=== PATIENT | male | born 1940 | race Caucasian/White ===

== ENCOUNTER 2023-06-21 06:16 | Inpatient (IN) | payer MEDICARE, SELFPAY ==
[2023-06-12 08:08] VITALS: BMI 23.2
[2023-06-12 09:01] LABS: Hematocrit 50.3 % (39.0-52.0); Hemoglobin 14.7 g/dL (13.0-18.0); Mean Corp Hgb Conc. 29.2 g/dL (33.0-37.0); Mean Corpuscular Hgb 23.3 pg (27.0-31.0); Mean Corpuscular Volume 79.8 fL (80.0-94.0); Mean Platelet Volume 9.7 fL (7.4-10.4); Platelet Count 370 10^3/uL (130-400); Red Cell Dist. Width 15.9 % (11.5-14.5); White Blood Cell Count 8.9 10^3/uL (4.8-10.8)
[2023-06-12 09:41] LABS: Blood Urea Nitrogen 25 mg/dl (9-20); Calcium 9.6 mg/dl (8.4-10.2); Carbon Dioxide 27 mmol/L (22-30); Chloride 103 mmol/L (98-107); Estimated Creatinine Clearance 55 ml/min; Glucose 84 mg/dl (70-99); Potassium 4.3 mmol/L (3.5-5.1); Sodium 137 mmol/L (135-145); eGFR > 60.00
[2023-06-21] VITALS (12 sets, daily range): BP systolic 119–134; BP diastolic 53–76; BMI 23.2
[2023-06-21] MEDS: TYLENOL 1000 MG PO (11:12)
[2023-06-21] MEDS: NORMOSOL-R 1000 IV ×2 (11:13→15:39)
--- NOTE | 2023-06-21 14:06 | W.IMMPOSTOP ---
Addendum entered and electronically signed by Bruno Alfredo MD 06/21/23 14:18:
[facility]#[id number]
Original Note:
Surgical Immed Post Op Note
-
Primary Surgeon: Juni
Assisting Surgeon: None
Pre-op Diagnosis: Ileostomy
Post-op Diagnosis: Ileostomy
Procedure Performed: Ileostomy reversal
Anesthesia Type: General
Specimen / Cultures: None
Estimated Blood Loss: 7 cc
Complications: None
Operative Findings:
1. [id number] stapled anastomosis using CANDICE 60 mm blue load stapler x2
2. Crotch stitch and staple line oversewn, mesenteric defect closed
3. Viable, hemostatic, and patent anastomosis
[2023-06-21] MEDS: DILAUDID 0.25 MG IV ×2 (14:59→15:31)
[2023-06-21] MEDS: TYLENOL 650 MG PO ×2 (16:21→20:21)
--- NOTE | 2023-06-21 16:47 | PTCARENOTE ---
Patient admitted from pacu post ileostomy reversal.The patient is alert and oriented.He rates his pain at a 2 out of 10.The dressing is dry and intact with just Betadine showing.Vital signs are stable.The patient is in his bed with the call velez in
reach.
[2023-06-22] VITALS (8 sets, daily range): BP systolic 125–140; BP diastolic 61–69
[2023-06-22] MEDS: NORMOSOL-R 1000 IV ×3 (00:36→17:46)
[2023-06-22] MEDS: TYLENOL PO (00:39)
[2023-06-22] MEDS: ZOFRAN 4 MG IV ×2 (03:56→15:23)
[2023-06-22] MEDS: TYLENOL 650 MG PO ×6 (04:55→23:48)
[2023-06-22] MEDS: PROTONIX IV 40 MG IV (08:35)
[2023-06-22] MEDS: NSS (PRESERVATIVE FREE) 10 ML IV (08:35)
[2023-06-22 09:13] LABS: % Basophils 0.1 % (0-2); % Immature Granulocytes 0.9 % (0-0.5); % Lymphocytes 3.6 % (20.5-51.1); % Monocytes 2.9 % (1.7-9.3); % Neutrophils 92.5 % (42.2-75.2); Absolute Immature Granulocytes 0.2 10^3/uL (0-0.05); Absolute Lymphocytes 0.8 10^3/uL (1.2-3.4); Absolute Monocytes 0.6 10^3/uL (0.1-0.6); Absolute Neutrophils 19.2 10^3/uL (1.4-6.5); Hematocrit 40.2 % (39.0-52.0); Hemoglobin 12.1 g/dL (13.0-18.0); Mean Corp Hgb Conc. 30.1 g/dL (33.0-37.0); Mean Corpuscular Hgb 23.3 pg (27.0-31.0); Mean Corpuscular Volume 77.5 fL (80.0-94.0); Mean Platelet Volume 10.1 fL (7.4-10.4); Nucleated Red Blood Cells % 0 % (-); Platelet Count 397 10^3/uL (130-400); Red Blood Cell Count 5.19 10^6/uL (4.70-6.10); Red Cell Dist. Width 14.8 % (11.5-14.5); White Blood Cell Count 20.7 10^3/uL (4.8-10.8)
[2023-06-22 09:35] LABS: Blood Urea Nitrogen 25 mg/dl (9-20); Calcium 8.7 mg/dl (8.4-10.2); Carbon Dioxide 24 mmol/L (22-30); Chloride 98 mmol/L (98-107); Estimated Creatinine Clearance 62 ml/min; Glucose 157 mg/dl (70-99); Potassium 4.8 mmol/L (3.5-5.1); Sodium 134 mmol/L (135-145); eGFR > 60.00
--- NOTE | 2023-06-22 09:49 | W.PN.GS2 ---
Addendum entered and electronically signed by Edgard George MD 06/22/23 10:01:
pt seen and examined with MANAGED SERVICES CONSULTANT, agree with documented progress note
c/o gas cramps, some incisional pain
no nausea but urge to belch
AFVSS
ABD: softly distended and tympanitic; mild/appropriate TTP at incision site
incision with gauze dressing - betadine stained
A/P: POD#1 s/p reversal of loop ileostomy
NPO, sips/chips for comfort
IVF
OOBTC/ambulate
Original Note:
Today's Communication / Plan
-
Sips of clears
OOB/Ambulate
Assessment / Plan
-
82 yo male with h/o PCV who is POD #1 ileostomy reversal
AFVSS
Reactive leukocytosis post op, other labs stable
Await return of bowel function, high risk for ileus
Voiding
--NPO with sips of clears
--Analgesics with scheduled Tylenol and prn narcotics
--Lovenox for VTE ppx
--Follow labs
--OOB/Ambulate
--IS while awake
Subjective Data
-
Date of Service: June 22, 2023
Patient seen and examined at bedside with Dr. George. Gas pains overnight, did not get much sleep. Voiding without difficulty. Denies n/v.
Objective Data
-
Intake and Output
06/21/23 06/22/23 06/23/23
06:59 06:59 06:59
Intake Total 1991
Output Total 250 / 250
Balance 1742 / 1742
Intake:
Oral fluids 240 / 240
IV fluids (Total) 1750 / 1750
normosol 250 / 250
IV piggybacks 2 / 2
Output:
Urine, Voided 250 / 250
Other:
Number of approximated MODERATE 1
amounts of urine
Vital Signs
Temp Pulse Resp BP Pulse Ox
98.1 F 74 20 126/61 97
06/22/23 07:30 06/22/23 07:30 06/22/23 07:30 06/22/23 07:30 06/22/23 07:30
Lab Results
06/22/23 08:36
06/22/23 08:36
Calcium 8.7 mg/dl (8.4-10.2) 06/22/23 08:36
Physical Exam
-
Gen: NAD
Abd: soft, mild tenderness, MANAGED SERVICES CONSULTANT, distention noted
Incision with intact dressing with shadowing
--- NOTE | 2023-06-22 14:31 | CM ---
CM following re: discharge planning.
Reviewed pt's chart. Met with patient in room.
Pt is an 82 year old, admitted with primary dx of POD#1 s/p reversal of loop ileostomy
Pt reports he lives with his partner Uvaldo in a 2-story home. There are no steps to enter and a flight of stairs to the bedroom/full bathroom. Patient has a half bathroom on the first floor and he may end up making a first floor set up. Pt reports
he had [facility] in the past and pt stated he will not need any VN services at discharge.
PCP: Eulalio Carrillo
Pharmacy: [facility].
D/C plan: home with partner support. Partner to transport at discharge.,
CM will follow with discharge plan updates as hospitalization progresses
--- NOTE | 2023-06-22 16:47 | PTCARENOTE ---
Report given to Rebecca on [facility], patient transferred in bed to room 2140 due to contact precautions
--- NOTE | 2023-06-22 23:45 | PTCARENOTE ---
Patient had a large loose dark brown stool.
--- NOTE | 2023-06-23 00:11 | PTCARENOTE ---
Patient had a large loose dark brown/bloody stool.
[2023-06-23 03:14] VITALS: BP 102/51
[2023-06-23] MEDS: NORMOSOL-R 1000 IV ×3 (03:22→23:57)
[2023-06-23] MEDS: TYLENOL PO ×2 (04:00→23:58)
[2023-06-23 07:09] LABS: Hematocrit 31.9 % (39.0-52.0); Hemoglobin 9.7 g/dL (13.0-18.0); Mean Corp Hgb Conc. 30.4 g/dL (33.0-37.0); Mean Corpuscular Hgb 22.9 pg (27.0-31.0); Mean Corpuscular Volume 75.4 fL (80.0-94.0); Mean Platelet Volume 9.9 fL (7.4-10.4); Platelet Count 327 10^3/uL (130-400); Red Blood Cell Count 4.23 10^6/uL (4.70-6.10); Red Cell Dist. Width 14.8 % (11.5-14.5); White Blood Cell Count 14.9 10^3/uL (4.8-10.8)
[2023-06-23 07:17] LABS: Blood Urea Nitrogen 60 mg/dl (9-20); Calcium 8.2 mg/dl (8.4-10.2); Carbon Dioxide 26 mmol/L (22-30); Chloride 105 mmol/L (98-107); Estimated Creatinine Clearance 55 ml/min; Glucose 92 mg/dl (70-99); Potassium 4.1 mmol/L (3.5-5.1); Sodium 138 mmol/L (135-145); eGFR > 60.00
[2023-06-23 07:50] VITALS: BP 113/57
[2023-06-23] MEDS: TYLENOL 650 MG PO ×4 (07:54→19:50)
[2023-06-23] MEDS: PROTONIX IV 40 MG IV (07:55)
[2023-06-23] MEDS: NSS (PRESERVATIVE FREE) 10 ML IV (07:55)
--- NOTE | 2023-06-23 09:33 | W.PN.GS2 ---
Addendum entered and electronically signed by Edgard George MD 06/23/23 09:54:
pt seen and examined
in good spirits this AM, appreciative of his overnight care
multiple bloody BMs, last at 1:30 am
feels less bloated, no nausea
post op pain improving
AFVSS
hgb 9.7 - acute blood loss anemia - anastomotic bleeding and surgical blood loss
ABD: soft, less distended, minimal tenderness, old ostomy site dressing changed - no erythema, no drainage, wick in place
A/P: POD#2 ileostomy reversal
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
clear liquid diet
Original Note:
Today's Communication / Plan
-
Clear liquids
Follow h/h
Assessment / Plan
-
82 yo male with h/o PCV who is POD #2 ileostomy reversal
AFVSS
Leukocytosis (reactive) improving
Mild acute blood loss anemia secondary to GI losses likely at anastomosis site. Last episode around 129
+flatus/stools
--Advance to clear liquids
--Trend h/h
--Analgesics with scheduled Tylenol and prn narcotics. NSAIDs on hold.
--Lovenox held given bleeding events overnight. SCD's for VTE ppx
--GI ppx with protonix
--OOB/Ambulate
--IS while awake
Subjective Data
-
Date of Service: June 23, 2023
Patient seen and examined at bedside with Dr. George. Feeling better overall. Denies n/v. Reports bloody stools x3 overnight with last episode around 0130. Abdominal discomfort minimal. Eager to have his morning coffee. Voiding since removal of
catheter.
Objective Data
-
Intake and Output
06/22/23 06/23/23 06/24/23
06:59 06:59 06:59
Intake Total 1991 / 1991 2099 / 2099
Output Total 250 / 250 450 / 450
Balance 1742 / 1742 1650 / 1650
Intake:
Oral fluids 240 / 240 700 / 700
IV fluids (Total) 1750 / 1750 1400 / 1400
normosol 250 / 250
IV piggybacks 2 / 2
Output:
Urine, Voided 250 / 250 450 / 450
Other:
Number of approximated MODERATE 1 2
amounts of urine
How many times incontinent 1
SATURATED amount urine
Number of unmeasured liquid
stools
Rectum 1
Vital Signs
Temp Pulse Resp BP Pulse Ox
98 F 95 16 113/57 95
06/23/23 07:50 06/23/23 07:50 06/23/23 07:50 06/23/23 07:50 06/23/23 07:50
Lab Results
06/23/23 06:53
Calcium 8.2 mg/dl (8.4-10.2) L 06/23/23 06:53
Physical Exam
-
Gen: NAD
Abd: soft, mild tenderness, PERSONNEL MANAGER, ND
Dressing changed to abdominal incision. Wick intact with some minimal SSF.
[2023-06-23 13:32] LABS: Hematocrit 34.9 % (39.0-52.0); Hemoglobin 10.9 g/dL (13.0-18.0)
[2023-06-23 15:35] VITALS: BP 117/63
[2023-06-23 23:36] VITALS: BP 115/62
[2023-06-24] MEDS: TYLENOL 650 MG PO ×5 (00:32→20:21)
[2023-06-24 04:47] LABS: Hematocrit 27.9 % (39.0-52.0); Hemoglobin 8.6 g/dL (13.0-18.0); Mean Corp Hgb Conc. 30.8 g/dL (33.0-37.0); Mean Corpuscular Hgb 23.3 pg (27.0-31.0); Mean Corpuscular Volume 75.6 fL (80.0-94.0); Mean Platelet Volume 9.7 fL (7.4-10.4); Platelet Count 279 10^3/uL (130-400); Red Blood Cell Count 3.69 10^6/uL (4.70-6.10); Red Cell Dist. Width 14.9 % (11.5-14.5); White Blood Cell Count 9.4 10^3/uL (4.8-10.8)
[2023-06-24 05:30] LABS: Blood Urea Nitrogen 32 mg/dl (9-20); Calcium 7.8 mg/dl (8.4-10.2); Carbon Dioxide 30 mmol/L (22-30); Chloride 101 mmol/L (98-107); Estimated Creatinine Clearance 62 ml/min; Glucose 92 mg/dl (70-99); Potassium 3.8 mmol/L (3.5-5.1); Sodium 136 mmol/L (135-145); eGFR > 60.00
[2023-06-24 07:14] VITALS: BP 114/52
--- NOTE | 2023-06-24 08:44 | W.PN.GS2 ---
Addendum entered and electronically signed by Bruno Alfredo MD 06/24/23 12:42:
Patient seen and examined independently.
No major complaints. Denies any nausea or vomiting, does feel slightly more distended. No significant abdominal pain. Reports passing continued loose darker almost black stools, denies any bright red blood. No dizziness or lightheadedness. No
fevers.
Gen: NAD
Abd: soft, NT, moderately distended, tympanitic, non-peritoneal, dressings c/d/i
Patient is an 82 yo M with h/o PCV who is�POD #3�ileostomy reversal
AFVSS
Leukocytosis resolved
No further bright red blood/clots noted in stools for >24hours, dark stools today, acute blood loss anemia
+flatus/stools
--Advance to full liquids
--Trend h/h, repeat this afternoon
--Analgesics with scheduled Tylenol and prn narcotics. NSAIDs on hold.
--SCD's for VTE ppx, hold chemical ppx given recent blood in stool
--GI ppx with protonix
--OOB/Ambulate
--IS while awake
Original Note:
Today's Communication / Plan
-
Full liquids
Trend h/h
Assessment / Plan
-
82 yo male with h/o PCV who is POD #3 ileostomy reversal
AFVSS
Leukocytosis resolved
No further bright red blood/clots noted in stools for >24hours, dark stools today
+flatus/stools
--Advance to full liquids
--Trend h/h
--Analgesics with scheduled Tylenol and prn narcotics. NSAIDs on hold.
--SCD's for VTE ppx, hold chemical ppx given recent blood in stool
--GI ppx with protonix
--OOB/Ambulate
--IS while awake
Subjective Data
-
Date of Service: June 24, 2023
Patient seen and examined at bedside with Dr. Gerber. Denies n/v. Some belching and no real appetite yet but requesting cream of wheat for breakfast. Passing flatus and stools. Large liquid dark stool today without christy blood.
Objective Data
-
Intake and Output
06/23/23 06/24/23 06/25/23
06:59 06:59 06:59
Intake Total 2100 / 2100 3750 / 3750
Output Total 450 / 450 300 / 300
Balance 1650 / 1650 3450 / 3450
Intake:
Oral fluids 700 / 700 1300 / 1300
IV fluids (Total) 1400 / 1400 2450 / 2450
Output:
Urine, Voided 450 / 450 300 / 300
Other:
Number of approximated MODERATE 2 1
amounts of urine
Number of approximated LARGE 4
amounts of urine
How many times incontinent 1
SATURATED amount urine
Number of unmeasured liquid
stools
Rectum 1 1
Vital Signs
Temp Pulse Resp BP Pulse Ox
98.9 F 73 18 115/62 96
06/23/23 23:36 06/23/23 23:36 06/23/23 23:36 06/23/23 23:36 06/23/23 23:36
Lab Results
06/24/23 04:08
06/24/23 04:08
Calcium 7.8 mg/dl (8.4-10.2) L 06/24/23 04:08
Physical Exam
-
Gen: NAD
Abd: soft, mild expected tenderness, mild distention.
Dressing changed to former stoma site. Wick removed and opening of wound packed lightly with gauze, minimal SS drainage.
[2023-06-24] MEDS: PROTONIX IV 40 MG IV (08:53)
[2023-06-24] MEDS: NSS (PRESERVATIVE FREE) 10 ML IV (08:53)
[2023-06-24] MEDS: NORMOSOL-R 1000 IV (11:21)
[2023-06-24] MEDS: TYLENOL PO (13:00)
[2023-06-24 13:06] LABS: Hematocrit 30.7 % (39.0-52.0); Hemoglobin 9.2 g/dL (13.0-18.0)
[2023-06-24 15:19] VITALS: BP 117/50
--- NOTE | 2023-06-24 16:09 | CM ---
Reviewed the chart notes. Patient ambulating hallways with partner. CM continues to be available to patient/family and is monitoring medical plan for needs at discharge.
Plan: Discharge to home when medically stable. No needs anticipated.
[2023-06-24 23:35] VITALS: BP 122/60
[2023-06-25] MEDS: TYLENOL PO ×2 (00:48→23:30)
[2023-06-25] MEDS: TYLENOL 650 MG PO ×5 (03:27→20:24)
[2023-06-25 04:58] LABS: Hematocrit 29.2 % (39.0-52.0); Hemoglobin 8.8 g/dL (13.0-18.0); Mean Corp Hgb Conc. 30.1 g/dL (33.0-37.0); Mean Corpuscular Hgb 23.2 pg (27.0-31.0); Mean Platelet Volume 9.9 fL (7.4-10.4); Platelet Count 266 10^3/uL (130-400); Red Blood Cell Count 3.79 10^6/uL (4.70-6.10); Red Cell Dist. Width 15.1 % (11.5-14.5); White Blood Cell Count 7.7 10^3/uL (4.8-10.8)
[2023-06-25 07:10] VITALS: BP 126/60
--- NOTE | 2023-06-25 08:12 | W.PN.GS2 ---
Today's Communication / Plan
-
-- LRD
Assessment / Plan
-
82 yo male with h/o PCV who is POD #4 ileostomy reversal
AFVSS
Leukocytosis resolved
No further bright red blood/clots noted in stools for >24hours, clear stools overnight
+flatus/stools
--Advance to LRD
--Trend h/h
--Analgesics with scheduled Tylenol and prn narcotics. NSAIDs on hold.
--SCD's for VTE ppx, hold chemical ppx given recent blood in stool
--GI ppx with protonix
--OOB/Ambulate
--IS while awake
-- Wound care: cover with dry gauze daily and ans needed
Subjective Data
-
Date of Service: June 25, 2023
Feels well, no complaints. Pain well-controlled. OOB/ambulating. Passing flatus and looser, nonbloody, no black stools. No nausea or vomiting. Eager for solid food. No fevers or chills.
Objective Data
-
Intake and Output
06/24/23 06/25/23 06/26/23
06:59 06:59 06:59
Intake Total 3750 / 3750 1200 / 1200
Output Total 300 / 300 650 / 650
Balance 3450 / 3450 550 / 550
Intake:
Oral fluids 1300 / 1300 1200 / 1200
IV fluids (Total) 2450 / 2450
Output:
Urine, Voided 300 / 300 650 / 650
Other:
Number of approximated MODERATE 1 2
amounts of urine
Number of approximated LARGE 4 1
amounts of urine
Number of unmeasured liquid
stools
Rectum 1 4
Vital Signs
Temp Pulse Resp BP Pulse Ox
98.0 F 67 16 126/60 98
06/25/23 07:10 06/25/23 07:10 06/25/23 07:10 06/25/23 07:10 06/25/23 07:10
Lab Results
06/25/23 04:30
06/24/23 04:08
Calcium 7.8 mg/dl (8.4-10.2) L 06/24/23 04:08
Physical Exam
-
Gen: NAD
Abd: soft, NT, mild distension (slightly improved), non-peritoneal, incisions c/d/i - no erythema, ecchymosis or drainage
[2023-06-25] MEDS: PROTONIX IV 40 MG IV (08:17)
[2023-06-25] MEDS: NSS (PRESERVATIVE FREE) 10 ML IV (08:17)
--- NOTE | 2023-06-25 14:43 | CM ---
Addendum entered by Lissette Valle RN 06/25/23 15:49:
IMM signed and placed on chart.
Original Note:
Reviewed the chart notes and spoke with the patient at the bedside. The patient has been ambulating the hallways with partner. The patient anticipates being discharged to home with no additional needs being identified at this time. CM continues
to be available to patient/family and is monitoring medical plan for needs at discharge.
Plan: Discharge to home when medically stable.
[2023-06-25 15:07] VITALS: BP 122/57
[2023-06-25 23:12] VITALS: BP 131/56
--- NOTE | 2023-06-26 05:05 | DOWNTIME ---
There was a [employer] Blood Bank Manager Downtime on 06/26/2023 from 0111 to 06/26/2023 at 0405. Downtime documentation of patient's care, including medication administrations, has been reconciled in the electronic record per guidelines. Refer to the
patient's paper chart under the miscellaneous tab to see printed paper medication records and downtime forms.
[2023-06-26] MEDS: TYLENOL PO (05:37)
[2023-06-26 07:49] LABS: Hematocrit 31.2 % (39.0-52.0); Hemoglobin 9.3 g/dL (13.0-18.0); Mean Corp Hgb Conc. 29.8 g/dL (33.0-37.0); Mean Corpuscular Hgb 22.8 pg (27.0-31.0); Mean Corpuscular Volume 76.5 fL (80.0-94.0); Mean Platelet Volume 9.8 fL (7.4-10.4); Platelet Count 292 10^3/uL (130-400); Red Blood Cell Count 4.08 10^6/uL (4.70-6.10); Red Cell Dist. Width 14.9 % (11.5-14.5); White Blood Cell Count 6.5 10^3/uL (4.8-10.8)
[2023-06-26 07:50] VITALS: BP 130/66
[2023-06-26] MEDS: NSS (PRESERVATIVE FREE) 10 ML IV (07:57)
[2023-06-26] MEDS: TYLENOL 650 MG PO ×4 (07:57→20:20)
[2023-06-26] MEDS: PROTONIX IV 40 MG IV (07:58)
--- NOTE | 2023-06-26 08:14 | W.PN.GS2 ---
Today's Communication / Plan
-
Monitor for formed stool
Assessment / Plan
-
82 yo male with h/o PCV who is POD #5 ileostomy reversal
AFVSS
Leukocytosis resolved
No further bright red blood/clots noted in stools for >24hours, continues with clear stools overnight
+flatus/stools
He would feel more comfortable going home after he has a formed BM
--Cont LRD
--H/H stable
--Analgesics with scheduled Tylenol and prn narcotics. NSAIDs on hold.
--SCD's for VTE ppx, hold chemical ppx given recent blood in stool
--GI ppx with protonix
--OOB/Ambulate
--IS while awake
-- Wound care: cover with dry gauze daily and as needed
Subjective Data
-
Date of Service: June 26, 2023
AFVSS, ambulatign, voiding, passing stool and flatus, natasha PO without issues, pain well controlled
Objective Data
-
Intake and Output
06/25/23 06/26/23 06/27/23
06:59 06:59 06:59
Intake Total 1200 / 1200 720 / 720
Output Total 650 / 650
Balance 550 / 550 720 / 720
Intake:
Oral fluids 1200 / 1200 720 / 720
Output:
Urine, Voided 650 / 650
Other:
Number of approximated SMALL 1
amounts of urine
Number of approximated MODERATE 2 2
amounts of urine
Number of approximated LARGE 1 1
amounts of urine
Number of unmeasured liquid
stools
Rectum 4
Vital Signs
Temp Pulse Resp BP Pulse Ox
99.3 F 75 16 131/56 95
06/25/23 23:12 06/25/23 23:12 06/25/23 23:12 06/25/23 23:12 06/25/23 23:12
Lab Results
06/26/23 07:29
06/24/23 04:08
Calcium 7.8 mg/dl (8.4-10.2) L 06/24/23 04:08
Physical Exam
-
Gen: NAd
Abd: soft, RLQ incision cdi with scant strikethrough on the gauze
[2023-06-26 15:11] VITALS: BP 108/63
[2023-06-26 23:38] VITALS: BP 122/76
[2023-06-27] MEDS: TYLENOL PO ×2 (01:11→11:40)
[2023-06-27] MEDS: TYLENOL 650 MG PO ×2 (04:46→07:37)
[2023-06-27 07:21] VITALS: BP 126/65
[2023-06-27] MEDS: NSS (PRESERVATIVE FREE) 10 ML IV (07:38)
[2023-06-27] MEDS: PROTONIX IV 40 MG IV (07:38)
--- NOTE | 2023-06-27 07:46 | W.PN.GS2 ---
Today's Communication / Plan
-
--DC today
Assessment / Plan
-
82 yo male with h/o PCV who is POD #6 ileostomy reversal
AFVSS
Leukocytosis resolved
No further bright red blood/clots noted in stools for >24hours, BM normal
+flatus/stools
--Cont LRD
--H/H stable
--Analgesics with scheduled Tylenol and prn narcotics.
--SCD's for VTE ppx, hold chemical ppx given recent blood in stool
--GI ppx with protonix
--OOB/Ambulate
--IS while awake
--Wound care: cover with dry gauze daily and as needed
--DC today
Subjective Data
-
Date of Service: June 27, 2023
No complaints. Loose stools have slowed down and has had a normal bowel movement. No nausea or vomiting. No fevers or chills. Pain well-controlled. Ambulating. Good energy.
Objective Data
-
Intake and Output
06/26/23 06/27/23 06/28/23
06:59 06:59 06:59
Intake Total 720 / 720 1300 / 1300
Balance 720 / 720 1300 / 1300
Intake:
Oral fluids 720 / 720 1300 / 1300
Other:
Number of approximated SMALL 1
amounts of urine
Number of approximated MODERATE 2 3
amounts of urine
Number of approximated LARGE 1
amounts of urine
Vital Signs
Temp Pulse Resp BP Pulse Ox
98.4 F 67 14 126/65 98
06/27/23 07:21 06/27/23 07:21 06/27/23 07:21 06/27/23 07:21 06/27/23 07:21
Lab Results
06/26/23 07:29
06/24/23 04:08
Calcium 7.8 mg/dl (8.4-10.2) L 06/24/23 04:08
Physical Exam
-
Gen: NAD
Abd: soft, NT/ND, dressing c/d/i - no erythema, ecchymosis or drainage
--- NOTE | 2023-06-27 07:48 | W.DS.TRANS ---
Addendum entered and electronically signed by LULU Dumont 07/01/23 10:58:
dictated #[id number]
Original Note:
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
-
Discharge Instructions:
Sleep Apnea Risk Intermediate
Discharge Diagnosis/Procedures Ileostomy closure
Diet Low Fiber,As tolerated
Activity No strenuous activity
Additional Activity Do not lift more than 15 pounds for the next 4-6
weeks
Bathing Restrictions OK to Shower
Wound Care Cover incision with dry gauze dressing and
change daily and as needed
Instructions:
Stand-Alone Forms:
Changes to Home Medications: No
Discharge Medications:
DC Medications w/original date entered in [facility]
aspirin 81 mg tablet,delayed release 81 mg PO DAILY Blood clot prevention/tx 09/21/22
cholecalciferol (vitamin D3) 25 mcg (1,000 unit) tablet (Vitamin D3) 25 mcg PO DAILY Supplement 09/21/22
famotidine 40 mg tablet 40 mg PO HS Gastrointestinal issue 09/21/22
therapeutic multivitamin 1 tab PO DAILY Supplement 09/21/22
acetaminophen 325 mg tablet 650 mg PO Q4HPRN PRN mild pain #1 tab 09/28/22
tramadol 50 mg tablet 50 mg PO Q6HPRN PRN severe pain/breakthrough pain #10 tabs 06/27/23
Home Medication Changes
Pending Results: No
--- NOTE | 2023-06-27 10:06 | CM ---
CM following re: discharge planning.
Reviewed pt's chart, met with pt.
Discharge order is note. Pt is aware, expressed his agreement with discharge and he stated his partner will transport home. IMM reviewed, placed in chart, pt has a copy.
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 Pt stated his partner helps as needed.
D/C plan:home no needs. Partner to transport.
== END 2023-06-27 14:32 | disposition home or self-care (01) | DRG 330 ==
LOC: 2 NORTH 06:16
PROVIDERS: Registered Nurse; ADMITTING PHYSICIAN Surgery; FAMILY PHYSICIAN Family Medicine
PROC: 0WQFXZ2 Repair Abdominal Wall, Stoma, External Approach (ICD-10-PCS; 2023-06-21)
PROC: 0DBB0ZZ Excision of Ileum, Open Approach (ICD-10-PCS; 2023-06-21)
DX: Z43.2 Encounter for attention to ileostomy (principal); D62 Acute posthemorrhagic anemia; K91.840 Postprocedural hemorrhage of a digestive system organ or structure following a digestive system procedure; D45 Polycythemia vera
CPT/HCPCS: 36415; 80048; 85014; 85018; 85025; 85027; 86850; 86900; 86901; 87070; 93005

== ENCOUNTER 2024-11-24 17:09 | Inpatient (IN) | payer MEDICARE, SELFPAY ==
[2024-11-24] VITALS (9 sets, daily range): BP systolic 108–129; BP diastolic 73–93; BMI 22.9; BMI 22.7
[2024-11-24 12:39] LABS: Hematocrit 43.3 % (39.0-52.0); Hemoglobin 12.1 g/dL (13.0-18.0); Mean Corp Hgb Conc. 27.9 g/dL (33.0-37.0); Mean Corpuscular Volume 68.3 fL (80.0-94.0); Nucleated Red Blood Cells % 0 % (-); Platelet Count 362 10^3/uL (130-400); Red Cell Dist. Width 20.2 % (11.5-14.5)
[2024-11-24 12:47] LABS: APTT 33.6 Sec (23.4-35.0); INR 1.21; PT 15.6 Sec (11.4-14.6)
[2024-11-24 12:51] LABS: ALT (SGPT) 15 U/L (0-50); AST (SGOT) 20 U/L (17-59); Albumin 4.3 g/dl (3.5-5.0); Alkaline Phosphatase 80 U/L (38-126); Blood Urea Nitrogen 20 mg/dl (9-20); Calcium 9.4 mg/dl (8.4-10.2); Carbon Dioxide 27 mmol/L (22-30); Chloride 105 mmol/L (98-107); Glucose 103 mg/dl (70-99); Potassium 5.4 mmol/L (3.5-5.1); Sodium 139 mmol/L (135-145); Total Protein 7.6 g/dl (6.3-8.2); eGFR > 60.00
[2024-11-24 13:02] LABS: Troponin I < 0.012 ng/ml
--- NOTE | 2024-11-24 15:00 | ED.GENMED ---
History of Present Illness
General
Chief Complaint: Heart Rate Problem
Time Seen by Provider: 11/24/24 14:58
History of Present Illness
History of Present Illness:
TIME OF INITIAL EVALUATION
- 3 PM
REVIEW OF OLD RECORDS
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 Hemoglobin in June 2023 was 9.3.
Note:
CHIEF COMPLAINT(S)
Elevated heart rate as discovered during a routine phlebotomy.
HISTORY OF PRESENT ILLNESS
The patient is an 84-year-old male who was referred to the emergency department by his primary care physician following the discovery of an elevated heart rate during a routine phlebotomy on November 17. The patient returned to the oncologist on November
where the same finding was noted. Subsequently, he was placed on a beta jan and had ambulatory heart monitoring initiated. The patient reports that he began the beta jan, Toprol (metoprolol), at a low dose of 25 mg once daily, starting
Saturday, four days prior to the emergency visit. A follow-up visit with his primary care physician led to the decision to double the beta jan, but after an electrocardiogram interpretation, the physician decided to refer the patient to the
emergency room instead.
Todays electrocardiogram, performed at the hospital, shows evidence of atrial flutter, a new finding for the patient. He has no history of atrial flutter or fibrillation confirmed by previous tests, as understood. The patient denies experiencing any
symptoms such as noticeable palpitations, shortness of breath, or edema. He was informed of the potential need for interventions such as cardioversion if symptoms had been present for under 48 hours and he was not currently on anticoagulants other
than baby aspirin. The risk of clot formation and stroke associated with atrial dysrhythmias was explained.
The attending physician is considering consultation with a magazine grinder loader for further management, as the patient has never seen one. The patient expressed a preference for Dr. Caitlin Sebastian but admitted to not having been under specific cardiology
care previously.
I spoke to his partner at bedside.
No significant findings were noted in the current blood work, and thyroid function tests were added for further evaluation.
SOCIAL DETERMINANTS AFFECTING HEALTH
Not directly emphasized by the patient but indirectly inferred, he was attended by his partner, indicating familial support.
MEDICATIONS
- Metoprolol 25 mg once daily.
PHYSICAL EXAM
General: Alert, no acute distress.
Skin: Warm, dry.
Head: Normocephalic, atraumatic.
Neck: Supple, trachea midline.
Eye, Ears, Nose, Mouth, and Throat: Oral mucosa moist.
Cardiovascular: Normal peripheral perfusion, No edema; assessed carotid pulse indicating flutter waves and his heart rate dropped in the 80s, regular rhythm, tachycardic.
Respiratory: Respirations are non-labored.
Gastrointestinal: Abdomen nondistended.
Back: Normal range of motion, Normal alignment.
Musculoskeletal: Normal range of motion, normal strength.
Neurological: Alert and oriented to person, place, time, and situation, No focal neurological deficit observed.
Psychiatric: Cooperative, appropriate mood & affect.
PLAN
Consult with a magazine grinder loader for further management of atrial flutter, including considering initiation of an appropriate anticoagulant to manage stroke risk and potentially adjusting the beta jan therapy.
Follow-up on thyroid function test results.
Potential hospitalization for close monitoring and further cardiologic evaluation.
DIFFERENTIAL DIAGNOSIS
The Differential Diagnosis includes, in no particular order and is not limited to:
1. Atrial fibrillation
2. Sinus tachycardia
3. Hyperthyroidism
4. Pulmonary embolism
5. Congestive heart failure
6. Hypertension
7. Electrolyte imbalance
8. Myocardial ischemia
9. Drug-induced tachycardia
10. Anemia.
RADIOLOGY
- Not indicated
EKG
- A-flutter, ventricular rate 125, right bundle branch block
LABS
- White count normal, hemoglobin 12.1. Potassium 5.4, normal renal function, troponin less than 0.012.
UPDATE
- I discussed case with Dr. Montiel: Patient is requesting Caitlin Sebastian for cardiology; does not have a magazine grinder loader; odd MRN anyway. No symptoms, but was found to be tachycardic at phlebotomy visit (h/o P vera), was referred to PMD, placed on
Toprol 25mg daily since 4d ago and their EKG computer read indicated 'sinus tachy', but he appears to be in rapid atrial flutter here. Takes baby aspirin; no anticoagulation; no h/o atrial dysrhythmia. No symptoms; no idea how long he has been in
this. Rate is in the 120's. Will give IV BB now. HR drops to 80s w/ carotid massage and clearly shows flutter waves. K 5.4; normal renal function; will give a dose of Lokelma.
SUMMARY OF ENCOUNTER
The patient, an 84-year-old male, was seen in the emergency department due to an elevated heart rate identified during a routine phlebotomy, leading to the discovery of atrial flutter with tachycardia on electrocardiogram. The emergency management
strategy included administering oral and intravenous medication to further manage the elevated heart rate. The decision for these interventions was influenced by the need to stabilize the patients heart rate and prepare him for probable
hospitalization for more detailed cardiac evaluation and monitoring.
DISPOSITION
Admit for further evaluation and further cardiac evaluation.
ASSESSMENT
Atrial flutter with tachycardia, necessitating close monitoring and evaluation by a specialist.
EMERGENCY TREATMENTS ADMINISTERED
Patient was given oral and IV medication in the emergency department to reduce heart rate, although specifics on medication types or dosages were not provided in the life science taxonomist.
MANAGEMENT OF THE PATIENTS CARE WAS DISCUSSED WITH
Consultation was held with magazine grinder loader Dr. Montiel, with consensus to admit the patient for further evaluation. Discussions also included involvement with a hospitalist for ongoing inpatient care.
PLAN
The plan includes hospitalization for further cardiac monitoring and assessment, specifically for atrial flutter with tachycardia.
MEDICATION RECONCILIATION
Oral and IV medications were administered to decrease heart rate. Details were not provided for specific medication names or dosages.
MEDICAL DECISION MAKING
-Number and Complexity of Problems Addressed: Chronic conditions affecting care include atrial flutter with tachycardia. Differential diagnosis to include atrial fibrillation, sinus tachycardia, hyperthyroidism, pulmonary embolism, congestive heart
failure, hypertension, electrolyte imbalance, myocardial ischemia, drug-induced tachycardia, anemia.
Data:
Category 3: Discussions with magazine grinder loader Dr. Montiel, and hospitalist for evaluation and management of the patients condition.
-Risk:
Hospitalization due to complex cardiac condition and need for thorough monitoring and potential complications such as tachycardia management and stroke prevention.
DIAGNOSIS
Atrial flutter with tachycardia (ICD-10: I48.92).
Past History
Past History
ED Past Medical History: Other (Diverticulitis, Polycythemia vera, )
ED Past Surgical History: Tonsilectomy and Other (Colostomy with Reversal, abd abscess, Nasal polyps, )
Social History
Tobacco: Non-smoker
Alcohol: Daily (Wine 2 glasses and [place] royal 1 glass)
Personal: Partner (Same sex )
Living: with family
Phy Exam
Physical Exam
Physical Exam:
See HPI
Course
Orders/Labs/Results
Orders:
Orders
11/24/24 12:02
EKG [Electrocardiogram (*1)] Urgent
Reason for Study: Tachycardia
11/24/24 12:03
EKG- Treatment ONCE
11/24/24 12:20
Complete Blood Count/With Diff Urgent
Comprehensive Metabolic Panel Urgent
PT/INR [Prothrombin Time] Urgent
Is patient on Coumadin/Warfarin?: No
Comment: [email or web address]
PTT Urgent
TSH Reflex To Free T4 Urgent
Comment: ADD ON
Troponin I Urgent
11/24/24 15:05
Add On- LAB Urgent
Tests Added?: TSH reflex fT4
11/24/24 15:19
Metoprolol [Lopressor] 5 mg IV NOW STA
Sodium Zirconium Cyclosilicate [Lokelma] 10 gram PO NOW STA
11/24/24 15:41
Echo 2D MMode Color/Doppler Routine
Reason for Study: new aflutter
11/24/24 17:00
Metoprolol Xl [Toprol Xl] 50 mg PO DAILY
11/24/24 20:00
Apixaban [Eliquis] 5 mg PO BID
11/25/24 06:00
Echo Chidi W/echo Doppler (#17) IN AM
Reason for Study: aflutter
Comment: CV to follow
NPO
Allow oral meds: Yes
Allow clear liquids: 4hrs prior to procedure
Comment: may have unrestricted clear liquid up to 4 hrs prior to scheduled procedure
Abnormal Lab Results
11/24/24
12:20
RBC 6.34 H 10^6/uL
(4.70-6.10)
Hgb 12.1 L g/dL
(13.0-18.0)
MCV 68.3 L fL
(80.0-94.0)
MCH 19.1 L pg
(27.0-31.0)
MCHC 27.9 L g/dL
(33.0-37.0)
RDW 20.2 H %
(11.5-14.5)
Abs Immat Gran (auto) 0.1 H 10^3/uL
(0-0.05)
Absolute Neuts (auto) 7.8 H 10^3/uL
(1.4-6.5)
Immature Gran % 0.8 H %
(0-0.5)
Neutrophils % 78.9 H %
(42.2-75.2)
Lymphocytes % 13.1 L %
(20.5-51.1)
PT 15.6 H Sec
(11.4-14.6)
Potassium 5.4 H mmol/L
(3.5-5.1)
Glucose 103 H mg/dl
(70-99)
11/24/24 12:20
11/24/24 12:20
Vital Signs
Initial and Last Documented VS:
Initial Vital Signs
Temp Pulse Resp BP Pulse Ox
37.1 C 126 16 127/93 99
11/24/24 12:07 11/24/24 12:07 11/24/24 12:07 11/24/24 12:07 11/24/24 12:07
Last Documented Vital Signs
Temp Pulse Resp BP Pulse Ox
37.1 C 98 18 108/73 100
11/24/24 12:07 11/24/24 15:30 11/24/24 15:30 11/24/24 15:48 11/24/24 15:49
*Pulse Oximetry
SaO2: 99
Oxygen Mode of Delivery: Room air
Patient hypoxic: no
*Critical Care Note
Total Time (30-74mins, 75-104mins- exclusive of procedures): Not Applicable
ED Attending Note
-
Portions of this chart may have been created with voice recognition software.� Occasional wrong word or��sound alike� substitutions may have occurred due to the inherent limitations of voice recognition software.
Discharge Plan
Departure
Patient Disposition: Admit
Date of Disposition: 11/24/24
Time of Disposition: 15:23
Presentation/result/management discussed w/ accepting MD/DO: Hospitalist
Discharge Problem:
Atrial flutter with rapid ventricular response
Prescriptions:
No Action
therapeutic multivitamin Tablet
1 tab PO DAILY
aspirin 81 mg Tablet,Delayed Release (Dr/Ec)
81 mg PO DAILY
cholecalciferol (vitamin D3) [Vitamin D3] 25 mcg (1,000 unit) Tablet
25 mcg PO DAILY
metoprolol succinate [Toprol XL] 50 mg Tablet Extended Release 24 Hr
50 mg PO QPM
Rx Instructions:
patient currently not taking as 11/23/24
Interventions
Interventions:
*Risk Screen - Suicide Last Done: 11/24/24 12:09
*Neglect/Abuse Screening Last Done: 11/24/24 12:09
ED- Cardiac Assessment Last Done: 11/24/24 15:09
ED- Pulmonary Assessment Last Done: 11/24/24 15:09
Discharge Date and Time
Print Language: INDONESIAN
[2024-11-24] MEDS: LOPRESSOR 5 MG IV (15:27)
[2024-11-24] MEDS: LOKELMA 10 GRAM PO (15:29)
--- NOTE | 2024-11-24 15:53 | HPS.HSE ---
Family Physician
-
Family Physician: NOT KNOW UNKNOWN - PT DOES
Chief Complaint
-
Asymptomatic tachycardia
History of Present Illness
This is an 84 y/o male with a phmx of polycythemia vera and ileostomy + ileostomy reversal who presented to the ED on 11/24/2024 by his PCP.
In of this year, patient had an extensive physical exam with his PCP including an EKG. He reports that this was normal. On November 17 he had a phlebotomy appointment. They saw he had an elevated heart rate on pulse ox, so they declined to do
the blood draw and instead gave him some NS. On November 19 he saw his armament aircraft mechanic who did an EKG. This showed that he had an abnormal rhythm, and he was prescribed a beta jan. He saw his PCP today who did another EKG, and recommended he come to
the ED.
In the ED an EKG showed atrial flutter. He reports he has had no symptoms at all, and denies any shortness of breath, chest pain, palpitations, weakness, dizziness, headache, numbness, tingling or any other concerns. He states because of this he has
no idea when this arrhythmia might have started, only that it was not present in August because his physical exam was unremarkable.
Medical History
Past Medical History
Past Medical History: Denies Arrhythmia, Asthma or COPD
Additional Past Medical History:
Polycythemia Vera, Diverticulitis, Hepatitis A + B (Treated in , no recurrence)
Past Surgical History: Reports Bowel Resection (Ileostomy and ileostomy reversal) and Tonsilectomy (Age 3)
Additional Past Surgical History:
Nasal polypectomy in 2004
Social History
Tobacco: Non-smoker
Alcohol: Daily (1-2 beers per day, occasionally enjoys [place] royal whisky or wine. )
Drug: None
Personal: Partner
Living: With Family
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
Family History
Family History: Other (Father - Dementia, Kidney disease, Diverticulitis. at age 80. Mother - Bladder infections. at age 93. Brother - Parkinson's)
Allergies / Home Medications
Allergies reflects when Allergies were last updated in [facility].
Home Medications with original date entered in [facility]
Allergy/Medication List:
Allergies
Allergy/AdvReac Type Severity Reaction Status Date / Time
No Known Allergies Allergy Verified 06/21/23 10:51
Home Medications
aspirin 81 mg tablet,delayed release 81 mg PO DAILY Blood clot prevention/tx 09/21/22
cholecalciferol (vitamin D3) 25 mcg (1,000 unit) tablet (Vitamin D3) 25 mcg PO DAILY Supplement 09/21/22
therapeutic multivitamin 1 tab PO DAILY Supplement 09/21/22
metoprolol succinate 50 mg tablet,extended release 24 hr (Toprol XL) 50 mg PO QPM 11/24/24
Review of Systems
-
History Source: Patient
A 12 point ROS was completed and negative except as noted: Yes
Constitutional: Denies Fever, Fatigue or Chills
Respiratory: Denies Cough or Trouble Breathing
Cardiac: Denies Chest Pain, Diaphoresis, Palpitations or Syncope
Abdomen/GI: Denies Abdominal Pain, Nausea, Vomiting, Diarrhea or Constipated
: Denies Dysuria or Flank Pain
Musculoskeletal: Denies Joint Pain
Skin: Denies Itching or Rash
Neurological: Denies Dizzy, Headache, Weakness or Numbness
Psych: Denies Dementia
Physical Exam
Vital Signs
Vital Signs
Temp Pulse Resp BP Pulse Ox
98.8 F 98 18 111/82 99
11/24/24 12:07 11/24/24 15:30 11/24/24 15:30 11/24/24 15:27 11/24/24 15:30
Physical Exam
General: Well Developed, Well Nourished, No Apparent Distress and Comfortable
HEENT: NormoCephalic, Anicteric, Atraumatic, Nose Appears Normal and Ears Appear Normal
Respiratory: Clear
Cardiac: S1/S2 and Tachycardia; No Murmur
GI: Soft, Non Tender, Non Distended and Normal Bowel Sounds
Rectal: Deferred by Provider
Genito-urinary: Deferred by me
Musculoskeletal: Edema, Left Lower Extremity (Mild, non-pitting) and Edema, Right Lower Extremity (Mild, non-pitting)
Skin: Warm and Dry; No Rash
Neuro: Awake, Alert and Oriented
Psych: Calm and Intact Judgment/Insight
Laboratory Results
-
11/24/24 12:20
11/24/24 12:20
Laboratory Results
PT 15.6 Sec (11.4-14.6) H 11/24/24 12:20
INR 1.21 11/24/24 12:20
APTT 33.6 Sec (23.4-35.0) 11/24/24 12:20
Total Bilirubin 0.7 mg/dl (0.2-1.3) 11/24/24 12:20
AST 20 U/L (17-59) 11/24/24 12:20
ALT 15 U/L (0-50) 11/24/24 12:20
Alkaline Phosphatase 80 U/L (38-126) 11/24/24 12:20
Troponin I < 0.012 ng/ml 11/24/24 12:20
Impression/Plan
-
IMPRESSION:
This is an 84 y/o male with a phmx of polycythemia vera and ileostomy reversal who presented to the ED on 11/24/2024 by his PCP after he had an abnormal EKG. EKG in the ED showed atrial flutter.
PLAN:
Atrial Flutter
-As noted on EKG from 11/24/2024. Unknown start date. Patient remains asymptomatic, though he is tachycardic
-Cardiology has already seen the patient. Will appreciate their insight into his case
-Cardioversion scheduled for tomorrow
-Pending Echo
-Continue Eliquis 5mg BID
-Continue Metoprolol XR 50mg QD
-Ordered IV metoprolol PRN for HR > 140
-Will monitor for symptoms if they arise
Right Bundle Branch Block
-Noted on EKG from 11/24/2024
-Encouraged outpatient follow up for monitoring
Polycythemia Vera
-Patient's last successful phlebotomy appointment was around 07/2024
-Will monitor CBC
H/o diverticulitis with ileostomy and ileostomy reversal
-No current GI concerns or complaints
-Encouraged outpatient follow up with PCP
H/o Hepatitis A and B
-S/p treatment in with no recurrence by patient's report
-Encouraged outpatient follow up with PCP.
--- NOTE | 2024-11-24 16:01 | CON.CAR ---
Consultation
Consultation Request
Date/Time Consultation Requested: 11/24/2024
Date/Time Consultation Performed: 11/24/2024
Requesting Provider: Hospitalist
Performing Provider: Cheryl
Reason for Consultation: New onset atrial flutter
Medical History
-
Chief Complaint: New onset atrial flutter
History of Present Illness:
84-year-old male who is here with his partner and comes in with new onset atrial flutter which was diagnosed at a physical on November 17, 2024 when he was noted to have elevated heart rates. He has been relatively asymptomatic so timing of onset is
difficult. Also noticed on the his primary started metoprolol 50 mg every afternoon and gave him a monitor which showed persistent atrial flutter and he sent the patient to the emergency department. Unfortunately his partner still with a loss
of his mother and he will be leaving for [place] on . Heart rates are 110-120 despite metoprolol therapy. He is on aspirin for polycythemia vera and had an ileostomy reversal June 2023. He has an extensive surgical history including
Beckford's procedure, drainage of intra-abdominal abscess September 2022, colostomy reversal in January 2023 with repeat abdominal washout, repair of anastomotic leak and ileostomy creation in January 2023. The ileostomy reversal was June 2023.
From a bowel perspective he is been relatively stable. His partner sees Dr. Caitlin Sebastian in the office. He is amenable to aspirin first polycythemia vera and the Eliquis.
Past Medical History
Past Medical History: Arrhythmias
Past Surgical History: Bowel Resection
Social History
Tobacco: Non-Smoker
Alcohol: None
Drug: None
Personal:
Living: With Family
Employment: Not Employed
Family History
Family History: Reviewed & Not Pertinent
Allergies / Home Medications
Allergy/AdvReac Type Severity Reaction Status Date / Time
No Known Allergies Allergy Verified 06/21/23 10:51
�Medication �Instructions �Recorded �Confirmed �Type
aspirin 81 mg tablet,delayed 81 mg PO DAILY Blood clot 09/21/22 11/24/24 History
release prevention/tx
cholecalciferol (vitamin D3) 25 25 mcg PO DAILY Supplement 09/21/22 11/24/24 History
mcg (1,000 unit) tablet (Vitamin
D3)
therapeutic multivitamin 1 tab PO DAILY Supplement 09/21/22 11/24/24 History
metoprolol succinate 50 mg 50 mg PO QPM 11/24/24 11/24/24 History
tablet,extended release 24 hr
(Toprol XL)
Review of Systems
-
All other systems: Negative unless noted
Constitutional: No Symptoms
Respiratory: No Symptoms
Cardiac: No Symptoms
Abdomen/GI: No Symptoms
: No Symptoms
Musculoskeletal: No Symptoms
Physical Exam
Vital Signs
Temp Pulse Resp BP Pulse Ox
98.8 F 98 18 108/73 100
11/24/24 12:07 11/24/24 15:30 11/24/24 15:30 11/24/24 15:48 11/24/24 15:49
Lab Results
11/24/24 12:20
11/24/24 12:20
Troponin I < 0.012 ng/ml 11/24/24 12:20
Physical Exam
General: Well Developed and Well Nourished
HEENT: Normocephalic and Anicteric
Respiratory: Clear
Cardiac: S1/S2 and Irregular Rhythm
Breast: Deferred by me
GI: Soft, Non Tender and Non Distended
Rectal: Deferred by Provider
Genito-urinary: Clear Urine
Musculoskeletal: No Clubbing and No Cyanosis
Skin: Warm, Dry and Rash
Neuro: Awake, Alert and Oriented
Hematologic/Lymphatic: No Lymphadenopathy
Psych: Calm
Impression / Plan
-
Impression:
New onset atrial flutter
History of polycythemia vera
GERD
History of Beckford's procedure
History of colostomy reversal
History of ileostomy creation
History of lap cholecystectomy
Final abdominal procedure of ileostomy reversal June 2023
Recommendations:
Onset unclear of his atrial flutter with rapid rates. Will check 2D echocardiogram. Will start Eliquis 5 mg twice daily in addition to his Toprol XL 50 mg p.o. every afternoon. I recommended HOWARD guided cardioversion tomorrow and please make him
n.p.o. after midnight. He can follow-up with our office for outpatient ischemic evaluation. I am broad strokes I did discuss alternative therapies for his atrial flutter if he has further recurrence and also discussed a 25 to 50% lifetime chance
of developing atrial fibrillation. We discussed alcohol minimization and outpatient sleep testing.
Data Reviewed
-
EKG: Tracing Personally Visualized and interpreted
Radiology: Image Personally Visualized and interpreted
Medical Tests (Nuc Med, Echo etc): Image Personally Visualized and interpreted
Labs: Labs Reviewed by me
Old Records: Reviewed
--- NOTE | 2024-11-24 19:07 | PTCARENOTE ---
Received pt from ED at 1830. Pt ambulated to bed. Skin assessed and pt placed on telemetry as ordered. Report given to next shift.
[2024-11-24] MEDS: ELIQUIS 5 MG PO (19:34)
[2024-11-24] MEDS: TOPROL XL 50 MG PO (19:34)
--- NOTE | 2024-11-24 22:30 | PTCARENOTE ---
pt is aoox3, no c/o chest pain, no sob, no dizziness. pt [phone]. administered po metoprolol. monitor on tele. informed POLE SHAVER HELPER Abdelwahab that HR was maintaining at 120's and elevated to 130's w/ ambulation.
[2024-11-24] MEDS: LOPRESSOR 2.5 MG IV (22:43)
[2024-11-24 22:54] LABS: Glucose - Point of Care 120 mg/dl (70-99)
--- NOTE | 2024-11-24 23:00 | RR ---
pt appeared ST on tele. went to perform an ekg and administered Lopressor for HR. EKG stated acute OK/STEMI. A Rapid Response was called on this patient, please see Rapid Response form. VSS. No c/o chest pain or SOB. A repeat EKG performed showed
only aflutter. labs drawn. OPERATIONS RESEARCH GROUP MANAGER contacted Cardiolgoy. pt is already in for echo/tim . pt continues to rest in bed w/ call velez in reach,
--- NOTE | 2024-11-24 23:06 | W.PN.UPDATE ---
Update Note
Progress Note Update
FRUIT DUMPER for EKG result with STEMI,
-Patient denies chest pain or sob. BP 114/78, hr 115, afebrile, RR 18, SPO2 98% on RA.
-EKGs reviewed with the cardiology information technology project manager.
-Repeated troponin is 0.014, previously 0.012
[2024-11-24 23:25] LABS: INR 1.43; PT 17.7 Sec (11.4-14.6)
[2024-11-24 23:26] LABS: APTT 36.5 Sec (23.4-35.0)
[2024-11-24 23:39] LABS: Troponin I 0.014 ng/ml
[2024-11-25 04:10] VITALS: BP 124/85
[2024-11-25 06:32] LABS: Hematocrit 44.4 % (39.0-52.0); Hemoglobin 12.5 g/dL (13.0-18.0); Mean Corp Hgb Conc. 28.2 g/dL (33.0-37.0); Mean Corpuscular Volume 68.1 fL (80.0-94.0); Platelet Count 327 10^3/uL (130-400); Red Cell Dist. Width 20.3 % (11.5-14.5)
[2024-11-25 06:56] LABS: Troponin I 0.015 ng/ml
[2024-11-25 07:05] VITALS: BP 113/78
[2024-11-25 07:14] LABS: Blood Urea Nitrogen 19 mg/dl (9-20); Calcium 9.3 mg/dl (8.4-10.2); Carbon Dioxide 27 mmol/L (22-30); Chloride 106 mmol/L (98-107); Estimated Creatinine Clearance 64 ml/min; Glucose 99 mg/dl (70-99); Magnesium 1.9 mg/dl (1.6-2.3); Potassium 4.6 mmol/L (3.5-5.1); Sodium 138 mmol/L (135-145); eGFR > 60.00
--- NOTE | 2024-11-25 07:18 | W.PN.HOSP.TC ---
Today's Communication/Plan
-
Cardioversion today
Assessment / Plan
Assessment / Plan
Assessment:
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
Plan:
Atrial Flutter with Rapid Ventricular Response
-[id number] score 2-3
-EKG in the ED showed AFL with heart rate near 120 and a 2-1 conductive pattern with tachycardia first noted on 11/17/2024, but unknown specific start date. Patient remains asymptomatic.
-Cardioversion scheduled for today
-Continue Eliquis 5MG BID
-Continue Metoprolol XR 50mg QD
-Continue IV Metoprolol PRN for HR>140
-Will monitor for symptoms if they arise
Right Bundle Branch Block
-Noted on EKG from
-Encouraged outpatient follow up for monitoring
Microcytic Anemia and Polycythemia Vera
-Hemoglobin 12.1, MCV 68.3 in the ED. Hemoglobin 12.5 and MCV 68.1 today
-Microcytic Anemia related to polycythemia vera with most recent successful phlebotomy in 07/2024, and/or iron deficiency
-Will replete iron as needed
-Will trend CBC
Hyperkalemia - RESOLVED
-Potasisum 5.4 on arrival, S/p 1 dose of Lokelma in the ED
-Potassium today 4.6
H/o Diverticulitis with ileostomy and ileostomy reverseal
-No current GI concerns or complaints
-Encouraged outpatient follow up with PCP
H/o Hepatits A and B
-S/p treatment in the with no recurrence by patient�s report
-Encouraged outpatient follow up with PCP
Anticipated Discharge: Within 24 hours
Subjective/Interval History
-
Date of Service: November 25, 2024
Patient was awake and doing well when I arrived. He continues to experience no symptoms including palpitations, chest pain or shortness of breath. He does report he slept poorly last night due to the hospital bed and people waking him up repeatedly,
and would prefer to leave the hospital as reasonably possible.
Objective Data
-
Labs:
Laboratory Results
11/24/24 11/25/24
23:07 06:23
WBC 10.7
Hgb 12.5 L
Hct 44.4
Plt Count 327
PT 17.7 H
INR 1.43
APTT 36.5 H
Sodium 138
Potassium 4.6
Chloride 106
Carbon Dioxide 27
BUN 19
Creatinine 0.8
Glucose 99
Calcium 9.3
Vital Signs:
Vital Signs
Temp Pulse Resp BP Pulse Ox
98.5 F 126 18 124/85 97
11/25/24 04:10 11/25/24 04:10 11/25/24 04:10 11/25/24 04:10 11/25/24 04:10
I&O
11/24/24 11/25/24 11/26/24
06:59 06:59 06:59
Intake Total 1250 / 1250
Balance 1250 / 1250
Review of Systems
-
History Source: Patient
Constitutional: Reports Sleep Disturbance (See HPI); Denies Chills or Weakness
Respiratory: Reports No Symptoms
Cardiac: Reports No Symptoms
Abdomen/GI: Reports No Symptoms
Musculoskeletal: Denies Joint Pain or Muscle Pain
Skin: Denies Itching or Rash
Neuro: Denies Dizzy, Headache, Weakness, Numbness or Lightheadedness
Physical Exam
-
General: Well Developed, Well Nourished, No Apparent Distress and Comfortable
HEENT: Normocephalic and Atraumatic
Respiratory: Clear to Auscultation
Cardiac: Regular Rhythm, S1/S2 and Tachycardic
Musculoskeletal: Edema, Right Lower Extrem (Mild edema, no pitting) and Edema, Left Lower Extrem (Mild edema, no pitting)
Skin: Warm and Dry
Neuro: Awake, Alert and Oriented
Psych: Calm
[2024-11-25] MEDS: ASPIR LOW (ENTERIC COATED) 81 MG PO (09:38)
[2024-11-25] MEDS: TOPROL XL 50 MG PO (09:40)
[2024-11-25] MEDS: THERAGRAN 1 TABLET PO (09:41)
[2024-11-25] MEDS: ELIQUIS 5 MG PO (09:41)
[2024-11-25] MEDS: VITAMIN D3 (cholecalciferol) 25 MCG PO (09:42)
--- NOTE | 2024-11-25 10:51 | PTCARENOTE ---
Pt maintained NPO for Echo/HOWARD . No c/o chest pain or discomfort. Heart rate 120's - pt asymptomatic. Call velez in reach .
[2024-11-25 11:00] VITALS: BP 104/72
--- NOTE | 2024-11-25 11:46 | W.PN.CARDCBS ---
Addendum entered and electronically signed by Tomasz Andrade MD 11/25/24 14:37:
I saw and examined the patient.
The Negative Notcher's note was reviewed and I agree with the note.
Comment:
GEN: No distress, awake, Ox3
HEENT: supple, anicteric, mmm
LUNGS: CTA, no wheezes/rales
CV: Reg, S1/S2, 1/6 syst LSB, no gallop
ABD: soft, BS+, NT/ND
EXT: No edema
NEURO: Gross non-focal
SKIN: No rash
PLan:
HOWARD today with LVEF of 50% and mild MR with no left atrial appendage thrombus.
Cardioversion is successful he is back in sinus rhythm. Continue Eliquis and Toprol.
Would increase Toprol to 75 mg p.o. daily upon discharge. DC aspirin.
OK for D/C later today.
Original Note:
Today's Communication / Plan
-
HOWARD cardioversion today
Continue Toprol
Currently on aspirin and Eliquis, would defer to outpatient miniature set constructor if he needs both
Hopeful for discharge this afternoon/evening
Impression / Plan
-
Primary Ppap Coordinator: none prior to admission, patient's sees Dr. Tucker
Impression:
New onset atrial flutter with RVR, unclear duration
Polycythemia vera
GERD
History of Beckford's procedure
History of colostomy reversal
History of ileostomy creation
History of lap cholecystectomy
Final abdominal procedure of ileostomy reversal June 2023
ECHO 11/25/24: pending
Plan:
- Patient presented with new a flutter discovered in outpatient setting and referred to ER. Patient asymptomatic
- Remains in a flutter on review of telemetry overnight with rapid rates.
- N.p.o. for HOWARD/cardioversion today
- Continue outpatient Toprol
- Was on aspirin 81 mg daily as an outpatient. Was started on Eliquis 5 mg twice daily this admission. Would consider stopping aspirin as now on anticoagulation, however will defer to Dr. Barbour
- TSH WNL
- Will arrange outpatient cardiac follow-up. would consider for OP ischemic evaluation and sleep study.
- hopeful for DC later today post procedure
Progress Note - Ppap Coordinator
Subjective
Date of Service: November 25, 2024
Feels well. Denies chest pain, shortness of breath, palpitations
Objective
Labs:
11/25/24 06:23
11/25/24 06:23
Labs
Hgb 12.5 g/dL (13.0-18.0) L 11/25/24 06:23
Hct 44.4 % (39.0-52.0) 11/25/24 06:23
Plt Count 327 10^3/uL (130-400) 11/25/24 06:23
PT 17.7 Sec (11.4-14.6) H 11/24/24 23:07
INR 1.43 11/24/24 23:07
APTT 36.5 Sec (23.4-35.0) H 11/24/24 23:07
Sodium 138 mmol/L (135-145) 11/25/24 06:23
Potassium 4.6 mmol/L (3.5-5.1) 11/25/24 06:23
BUN 19 mg/dl (9-20) 11/25/24 06:23
Creatinine 0.8 mg/dL (0.7-1.3) 11/25/24 06:23
Glucose 99 mg/dl (70-99) 11/25/24 06:23
Troponins
11/24/24 11/24/24 11/25/24
12:20 23:07 06:23
Troponin I < 0.012 0.014 0.015
Vital Signs and I&O:
Vital Signs
Temp Pulse Resp BP Pulse Ox
98.6 F 128 20 113/78 96
11/25/24 07:05 11/25/24 09:40 11/25/24 07:05 11/25/24 09:40 11/25/24 07:05
Vital Signs
Temp Pulse Resp BP Pulse Ox
98.6 F 128 20 113/78 96
11/25/24 07:05 11/25/24 09:40 11/25/24 07:05 11/25/24 09:40 11/25/24 07:05
Intake & Output
11/23/24 11/24/24 11/25/24 11/26/24
07:59 07:59 07:59 07:59
Intake Total 1250 / 1250
Balance 1250 / 1250
Physical Exam
Physical Exam
GEN: No distress, awake, alert, oriented x3
HEENT: supple, anicteric, mmm, EOMI
LUNGS: CTA bilaterally, no wheezes/rales
CV: Irreg irreg, S1/S2, no murmur
ABD: soft, BS+, NT/ND
EXT: No cyanosis, clubbing, edema
NEURO: Gross non-focal
SKIN: Warm, pink, dry. No rash
--- NOTE | 2024-11-25 13:32 | CM ---
Patient seen bedside, initial assessment completed. Patient is a 84-year-old male with polycythemia vera, HBV, GERD, H/O colostomy s/p reversal following perforated diverticulitis that is presenting to the ED with a complaint of tachycardia.
Patient resides w/ spouse in a 2ST[facility], no steps to enter. Patient is independent w/ ambulation, no device required. Independent w/ ADLs, no DME. Denies SNF, prev known to [facility].
Address, point of contact and insurance verified
PCP: Eulalio Carrillo
Pharmacy: [facility]
Patient doesn't believe he will need anything at d/c. Due to have a HOWARD cardioversion today, poss d/c later today or this evening
Plan: Home, no needs
--- NOTE | 2024-11-25 14:32 | ITS.CL.CARDI ---
Family Resource Specialist - Cardioversion
Cardioversion
Procedure Report:
Date of Procedure: 11/25/24
Procedure: Cardioversion
Indication: Symptomatic atrial flutter
Performing Physician: Wilmar Andrade MD
Technique: The patient was brought to the holding area. Signed informed consent was obtained. A time out was called and performed. The patient was anesthetized by the anesthesia service. Anticoagulation status was reviewed and appropriate. R2 pads
were placed anteriorly and posteriorly. A 200 J synchronized biphasic shock restored normal sinus rhythm without significant bradycardia. There were no complications.
Conclusion: Uncomplicated cardioversion from atrial flutter to sinus rhythm.
Recommendation: Routine post cardioversion care. Continue watermelon inspector anticoagulation.
--- NOTE | 2024-11-25 14:59 | W.DCSUMMARY ---
Documented by User: Arabella Short DO, Resident 11/25/24 15:00
Discharge Summary
Discharge Data
Date of Admission: 11/24/24
Date of Discharge: 11/25/24
-
Pending Results: No
Hospital Course
This is an 84 y/o male with pmhx of polycythemia vera and ileostomy + ileostomy reversal who presented to the ED on 11/24/2024 after he was found to be in atrial flutter by his PCP early that same day without any symptoms. It is unclear exactly when
this rhythm began, though it was not noted during his extensive physical exam in August of this year, and he had been tachycardic on October 18 when he was scheduled for routine phlebotomy.
In the ED, EKG showed atrial flutter with rapid ventricular response with a heart rate near 120 and a 2-1 conductive pattern. He was admitted to the hospital and started on Eliquis 5mg BID, metoprolol XR 50 mg daily. He remained asymptomatic for the
duration of his hospitalization. On 11/25/2024 he underwent cardioversion and returned to normal sinus rhythm. He tolerated the procedure well, and was found to be medically stable and discharged to home with a new prescription for metoprolol XR 75mg
daily, and Eliquis 5mg BID. He was instructed to follow up with his PCP in less than one week.
Discharge Plan
-
Patient Disposition: Home (Routine Discharge)
Discharge Diagnosis/Procedures: Atrial Flutter with Rapid Ventricular Response, Right Bundle Branch Block, Microcytic Anemia and Polycythemia Vera, Hyperkalemia, History of Diverticulitis with ileostomy and ileostomy reversal, History of Hepatitis A
and B
Condition: Good
Diet: No restrictions
Activity: No restrictions
Driving Restrictions: As prior to admission
Bathing Restrictions: None
Referrals:
Eulalio Carrillo DO [Family Provider, Family Practice] - in less than 1 week
Joan Garrison PA-C [Specified Professional Personl, Cardiology] - 12/28/24 4:00 pm
Referral Note: You have a cardiology follow-up appointment at the [place] office with Dr. Tucker's physician dental assistant, Joan. Please call with questions
Additional Discharge Medication Instructions: STOP aspirin as you are now on eliquis! You should take one tablet of Eliquis twice each day.
We are also starting you on 75mg of Metoprolol. You should take this once each day.
Prescriptions:
New
metoprolol succinate 50 mg Tablet Extended Release 24 Hr
75 mg PO DAILY Qty: 30 0RF
Eliquis 5 mg Tablet
5 mg PO BID Qty: 60 0RF
Continued
therapeutic multivitamin Tablet
1 tab PO DAILY
cholecalciferol (vitamin D3) [Vitamin D3] 25 mcg (1,000 unit) Tablet
25 mcg PO DAILY
Discontinued
aspirin 81 mg Tablet,Delayed Release (Dr/Ec)
81 mg PO DAILY
metoprolol succinate [Toprol XL] 50 mg Tablet Extended Release 24 Hr
50 mg PO QPM
Rx Instructions:
patient currently not taking as 11/23/24
Discharge Orders:
Discharge Patient (As Directed); Ordered 11/25/24
Ordered By: Arabella Short
Discharge Date and Time
Discharge Date/Time: 11/25/24 17:30
Print Language: ZIMBABWEAN

Documented by User: Ye Shrestha DO 11/26/24 11:33
Discharge Summary
Discharge Data
Date of Admission: 11/24/24
Date of Discharge: 11/25/24
Total time spent discharging patient (in min): 35
Discharge Plan
-
Patient Disposition: Home (Routine Discharge)
Discharge Diagnosis/Procedures: Atrial Flutter with Rapid Ventricular Response, Right Bundle Branch Block, Microcytic Anemia and Polycythemia Vera, Hyperkalemia, History of Diverticulitis with ileostomy and ileostomy reversal, History of Hepatitis A
and B
Condition: Good
Diet: No restrictions
Activity: No restrictions
Driving Restrictions: As prior to admission
Bathing Restrictions: None
Referrals:
Eulalio Carrillo, [Family Provider, Family Practice] - in less than 1 week
Joan Garrison PA-C [Specified Professional Personl, Cardiology] - 12/28/24 4:00 pm
Referral Note: You have a cardiology follow-up appointment at the [place] office with Dr. Tucker's physician dental assistant, Joan. Please call with questions
Additional Discharge Medication Instructions: STOP aspirin as you are now on eliquis! You should take one tablet of Eliquis twice each day.
We are also starting you on 75mg of Metoprolol. You should take this once each day.
Prescriptions:
New
metoprolol succinate 50 mg Tablet Extended Release 24 Hr
75 mg PO DAILY Qty: 30 0RF
Eliquis 5 mg Tablet
5 mg PO BID Qty: 60 0RF
Continued
therapeutic multivitamin Tablet
1 tab PO DAILY
cholecalciferol (vitamin D3) [Vitamin D3] 25 mcg (1,000 unit) Tablet
25 mcg PO DAILY
Discontinued
aspirin 81 mg Tablet,Delayed Release (Dr/Ec)
81 mg PO DAILY
metoprolol succinate [Toprol XL] 50 mg Tablet Extended Release 24 Hr
50 mg PO QPM
Rx Instructions:
patient currently not taking as 11/23/24
Discharge Orders:
Discharge Patient (As Directed); Ordered 11/25/24
Ordered By: Arabella Short
Discharge Date and Time
Discharge Date/Time: 11/25/24 17:30
Print Language: ZIMBABWEAN
[2024-11-25 15:20] VITALS: BP 96/61
--- NOTE | 2024-11-25 15:41 | PTCARENOTE ---
patient received from Echo/HOWARD - heart rate sinus rhythm 70. Awaiting lunch at present.
[2024-11-25 15:50] VITALS: BP 92/70
--- NOTE | 2024-11-25 16:49 | PTCARENOTE ---
Reviewed discharge instructions with patient and significant other, verbalized understanding and stated he would be purchasing a bp cuff to track his blood pressure and heart rate. Costume Mistress appt set up already as well as PCP.
== END 2024-11-25 17:30 | disposition home or self-care (01) | DRG 309 ==
LOC: 4 WEST ACU 17:09
PROVIDERS: Emergency Medicine; Internal Medicine Cardiovascular Disease; Nurse Practitioner Family; ADMITTING PHYSICIAN Internal Medicine; CONSULT PHYSICIAN Internal Medicine Cardiovascular Disease; EMERGENCY PHYSICIAN Emergency Medicine; FAMILY PHYSICIAN Family Medicine
PROC: B24BZZ4 Ultrasonography of Heart with Aorta, Transesophageal (ICD-10-PCS; 2024-11-25)
PROC: 5A2204Z Restoration of Cardiac Rhythm, Single (ICD-10-PCS; 2024-11-25)
DX: I48.92 Unspecified atrial flutter (principal); I25.3 Aneurysm of heart; D45 Polycythemia vera; D50.9 Iron deficiency anemia, unspecified; E87.5 Hyperkalemia; I45.10 Unspecified right bundle-branch block; K21.9 Gastro-esophageal reflux disease without esophagitis; Z43.2 Encounter for attention to ileostomy; Z79.82 Long term (current) use of aspirin; Z79.899 Other long term (current) drug therapy; Z82.0 Family history of epilepsy and other diseases of the nervous system
CPT/HCPCS: 80048; 80053; 82962; 83735; 84443; 84484; 85025; 85027; 85610; 85730; 87070; 92960; 93005; 93312; 93320; 93325; 96374; 99284